=== PATIENT | male | born 1945 | race Caucasian/White ===

== ENCOUNTER → 2018-06-15 | Outpatient (CLI) | payer OTHER | END | disposition home or self-care (01) | LOC: PCVCCLINIC 11:20 | PROVIDERS: ATTEND Internal Medicine Cardiovascular Disease | DX: R00.1 Bradycardia, unspecified (principal); E78.00 Pure hypercholesterolemia, unspecified; K21.9 Gastro-esophageal reflux disease without esophagitis; E11.9 Type 2 diabetes mellitus without complications; E78.5 Hyperlipidemia, unspecified; R94.31 Abnormal electrocardiogram [ECG] [EKG]; R06.09 Other forms of dyspnea; Z79.84 Long term (current) use of oral hypoglycemic drugs | CPT/HCPCS: 93005; G0463 ==

== ENCOUNTER → 2018-07-10 | Outpatient (CLI) | payer OTHER ==
--- NOTE | 2018-07-10 14:05 | PCVCIMAG ---
APPROVED REPORT Imaging Protocol: Rest Tc-99m/Stress Tc-99m 1 day Study performed: 07/10/2018 08:28:18 Indication: Bradycardia, Dyspnea Patient Location: Out-Patient Stress Nurse: Germaine Mixon RN, Traci Driver RN NM Tech:Johnathan Haynes NMVALERIOB Ht: 6 ft 0 in Wt: 188 lbs BSA: 2.08 m2 HR: 68 bpm BP: 151/70 mmHg BMI: 25.49 Rhythm: Sinus Rhythm, First Degree AV Block, Incomplete RBBB Medical History Medical History: Age, Hyperlipidemia, DM Non insulin dependent Medications: Zetia, Crestor Allergies: NKA Pretest Chest Pain Characteristics: No chest pain Exercise History: Physically active Resting Data Rest SPECT myocardial perfusion imaging was performed in supine position 45 minutes following the intravenous injection of 11.2 mCi of Tc-99m Sestamibi. Time of rest injection: 814 Date: 07/10/2018 Administration Route: IV Administration Site: Right Hand Exercise Stress At peak stress, the patient was injected intravenously with 35.4mCi of Tc-99m Sestamibi. Time of stress injection: 929 Date: 07/10/2018 Administration Route: IV Administration Site: Right Hand Patient continued to exercise for 8 minute(s). Gated Stress SPECT was performed 45 minutes after stress injection. The images were gated to evaluate regional wall motion and calculate left ventricular ejection fraction. Stress Test Details Stress Test: Exercise stress testing was performed using a Nile protocol. HRMax Heart Rate (APMHR): 145 bpm Resting HR: 68 bpmTarget HR (85% APMHR): 123 bpm Max HR Achieved: 129 bpm % of APMHR: 88 Recovery HR: 78 bpm HR response to stress: Normal HR response to stress BP Resting BP: 151/70 mmHg Max BP: 187/77 mmHg Recovery BP: 161/72 mmHg BP response to stress: Blunted blood pressure response during treamill. See scanned report. ECG Resting ECG: Sinus Rhythm, 1st degree AV block Stress ECG: Sinus Tachycardia with ST changes ST Change: ST depression Maximum ST Deviation: 4.70 mm Arrhythmia: Fusion beats Recovery ECG: Sinus Rhythm, 1st degree AV block, Prolonged QT Recovery ST Change: ST depression Clinical Reason for Termination: ST Segment Changes, Target HR obtained Stress Symptoms: Mild dyspnea Exercise duration: 8 min 29 sec Exercise capacity: 10.10 METs Overall Exercise Capacity for Age: Average Scale: Active Angina Score: None Symptoms resolved during recovery. Nurse Comments Denied symptoms throughout treadmill activity. Fork sweaty and looked pale post treadmill. Snack and coke given - kept on monitor till EKG back to baseline. Dr Gagnon notified re abn ekg. Stress ECG Conclusion Snyder Treadmill Score is -15.5 which is High risk. Study Quality Study: Good Study Data Post stress, the left ventricular ejection was 72%.. SSS: 1 SRS: 1 SDS: 0 TID = 1.18. Perfusion There is a medium area of moderately reduced uptake in the mid and apical segment of the inferior wall which is seen on the stress images and normalizes on the resting images. This area thickens and moves normally and is most consistent with ischemia. Wall Motion Normal left ventricular wall motion. Nuclear Conclusion ECG Findings: positive for ischemia Clinical Findings: non-diagnostic Nuclear Findings: positive for ischemia Exercise Capacity: normal Left Ventricular Function: normal There is a reversible defect in the inferior segment, consistent with ischemia. There is normal global and segmental LV systolic function.
== END | disposition home or self-care (01) ==
LOC: PCVCIMAG 07:56
PROVIDERS: ATTEND Internal Medicine Cardiovascular Disease
DX: R00.1 Bradycardia, unspecified (principal); R06.00 Dyspnea, unspecified; E78.5 Hyperlipidemia, unspecified; E11.9 Type 2 diabetes mellitus without complications
CPT/HCPCS: 78452; 93017; A9500; G0463

== ENCOUNTER → 2018-07-24 | Outpatient (CLI) | payer OTHER | END | disposition home or self-care (01) | LOC: PCVCCLINIC 11:14 | PROVIDERS: ATTEND Internal Medicine Cardiovascular Disease | DX: I25.10 Atherosclerotic heart disease of native coronary artery without angina pectoris (principal); R00.1 Bradycardia, unspecified; E78.00 Pure hypercholesterolemia, unspecified; I10 Essential (primary) hypertension; E78.5 Hyperlipidemia, unspecified; K21.9 Gastro-esophageal reflux disease without esophagitis; Z79.84 Long term (current) use of oral hypoglycemic drugs | CPT/HCPCS: 93005; G0463 ==

== ENCOUNTER → 2018-08-08 | Outpatient (CLI) | payer OTHER | END | disposition home or self-care (01) | LOC: PCVCCLINIC 10:00 | PROVIDERS: ATTEND Internal Medicine | DX: I25.10 Atherosclerotic heart disease of native coronary artery without angina pectoris (principal); E11.9 Type 2 diabetes mellitus without complications; I10 Essential (primary) hypertension; E78.5 Hyperlipidemia, unspecified; K21.9 Gastro-esophageal reflux disease without esophagitis; E78.00 Pure hypercholesterolemia, unspecified; Z79.899 Other long term (current) drug therapy; Z79.84 Long term (current) use of oral hypoglycemic drugs | CPT/HCPCS: 36415 ==

== ENCOUNTER → 2018-09-17 | Outpatient (CLI) | payer OTHER ==
--- NOTE | 2018-09-17 14:52 | PCVCIMAG ---
APPROVED REPORT Laterality: Bilateral Indications Bruit Doppler Spectral Velocity Analysis PSV / EDVPSV / EDV ECA (R) 173 / 13 cm/sECA (L) 178 / 18 cm/s dICA (R) 111 / 29 cm/sdICA (L) 98 / 30 cm/s Angle (R) 110 / 28 cm/smICA (L) 92 / 23 cm/s pICA (R) 77 / 20 cm/spICA (L) 96 / 24 cm/s Bulb (R) 63 / 10 cm/sBulb (L) 112 / 19 cm/s dCCA (R) 73 / 15 cm/sdCCA (L) 96 / 19 cm/s mCCA (R) 98 / 14 cm/smCCA (L) 112 / 20 cm/s Vert (R) 83 / 16 cm/sVert (L) 58 / 10 cm/s ICA/CCA 1.52ICA/CCA 1.02 Findings The right carotid bulb has minimal plaque. The right proximal internal carotid artery shows no significant stenosis. The right common carotid artery shows no significant stenosis. The right external carotid artery shows <50% stenosis. The left carotid bulb has moderate calcified plaque. The left proximal internal carotid artery shows <40% stenosis. The left common carotid artery shows no significant stenosis. The left external carotid artery shows >50% stenosis. Conclusion 1. Right internal carotid without significant stenosis 2. Left internal carotid stenosis (<40%) 3. Antegrade vertebral flow
== END | disposition home or self-care (01) ==
LOC: PCVCIMAG 14:12
PROVIDERS: ATTEND Internal Medicine Cardiovascular Disease
DX: I65.23 Occlusion and stenosis of bilateral carotid arteries (principal); R09.89 Other specified symptoms and signs involving the circulatory and respiratory systems
CPT/HCPCS: 93880

== ENCOUNTER → 2019-01-29 | Outpatient (CLI) | payer OTHER ==
--- NOTE | 2019-01-29 11:00 | PCVCIMAG ---
APPROVED REPORT Study performed: 01/29/2019 09:56:25 EXAM: Comprehensive 2D, Doppler, and color-flow Echocardiogram Patient Location: Echo lab Status: routine BSA: 2.08 HR: 59 bpmBP: 136/62 mmHg Rhythm: Bradycardia Other Information Study Quality: Adequate Risk Factors: Cardiac Risk Factors: HTN Indications Bradycardia CAD 2D Dimensions IVSd: 11.35 (7-11mm)LVOT Diam: 21.48 (18-24mm) LVDd: 41.02 mm PWd: 11.22 (7-11mm)Ascending Ao: 28.41 (22-36mm) LVDs: 29.09 (25-40mm) Left Atrium: 39.57 (27-40mm) Aortic Root: 25.70 mm LV Single Plane 4CH: 67.72 % LV Single Plane 2CH: 67.90 % Biplane EF: 67.3 % Volumes Left Atrial Volume (Systole) Single Plane 4CH: 60.81 mLSingle Plane 2CH: 60.44 mL LA ESV Index: 29.00 mL/m2 Aortic Valve AoV Peak Russell.: 1.76 m/s AO Peak Gr.: 12.67 mmHgLVOT Max P.61 mmHg LVOT Max V: 1.07 m/s SHERON Vmax: 2.21 cm2 Mitral Valve E/A Ratio: 1.3 MV Decel. Time: 216.14 ms MV E Max Russell.: 0.68 m/s MV A Russell.: 0.52 m/s IVRT: 89.97 ms Pulmonary Valve PV Peak Russell.: 1.94 m/sPV Peak Gr.: 15.13 mmHg Pulmonary Vein P Vein S: 0.38 m/sP Vein A: 0.35 m/s P Vein D: 0.53 m/sP Vein A Dur.: 100.3 msec P Vein S/D Ratio: 0.72 Tricuspid Valve TR Peak Russell.: 2.37 m/s TR Peak Gr.: 22.53 mmHg Left Ventricle The left ventricle is normal size. There is normal LV segmental wall motion. There is normal left ventricular wall thickness. Left ventricular systolic function is normal. The left ventricular ejection fraction is within the normal range. LVEF is 65%. Grade II - pseudonormal filling dynamics. Right Ventricle The right ventricle is normal size. The right ventricular systolic function is normal. Atria The left atrium size is normal. The right atrium size is normal. Aortic Valve Mild aortic valve sclerosis. No aortic regurgitation is present. There is no aortic valvular stenosis. Mitral Valve The mitral valve is normal in structure. There is no mitral valve regurgitation noted. No evidence of mitral valve stenosis. Tricuspid Valve The tricuspid valve is normal in structure. Mild tricuspid regurgitation with PAP of 30 mmHg. Pulmonic Valve The pulmonary valve is normal in structure. Mild pulmonic regurgitation. Great Vessels The aortic root is normal in size. IVC is normal in size and collapses >50% with inspiration. Pericardium There is no pericardial effusion. There is no pleural effusion. <Conclusion> The left ventricle is normal size. There is normal left ventricular wall thickness. Left ventricular systolic function is normal. Grade II - pseudonormal filling dynamics. The right ventricle is normal size. The left atrium size is normal. Mild aortic valve sclerosis. The mitral valve is normal in structure. Mild tricuspid regurgitation with PAP of 30 mmHg.
== END | disposition home or self-care (01) ==
LOC: PCVCIMAG 09:41
PROVIDERS: ATTEND Internal Medicine Cardiovascular Disease
DX: I08.8 Other rheumatic multiple valve diseases (principal); I25.10 Atherosclerotic heart disease of native coronary artery without angina pectoris; I10 Essential (primary) hypertension; E78.00 Pure hypercholesterolemia, unspecified; K21.9 Gastro-esophageal reflux disease without esophagitis; E78.5 Hyperlipidemia, unspecified
CPT/HCPCS: 93306